=== PATIENT | male | born 1980 | race Hispanic/Latino ===

== ENCOUNTER 2017-12-22 14:36 | Emergency (ER) | payer SELFPAY ==
[~2017-12-22] VITALS: Ht 177.8 cm; Wt 83.9 kg
[2017-12-22] MEDS ORDERED: BACTRIM DS TAB1 EACH PO (15:01)
== END 2017-12-22 15:07 | disposition home or self-care (01) ==
LOC: ED 14:36
DX: L72.3 Sebaceous cyst (principal)
CPT/HCPCS: 99283

== ENCOUNTER 2020-07-03 10:46 | Emergency (ER) | payer OTHER ==
[~2020-07-03] VITALS: Ht 177.8 cm; Wt 83.9 kg
[~2020-07-03 10:46] MED LIST: BACTRIM DS TAB1 EACH PO
== END 2020-07-03 11:30 | disposition home or self-care (01) ==
LOC: ED 10:46
DX: M65.4 Radial styloid tenosynovitis [de Quervain] (principal)
CPT/HCPCS: 99283